=== PATIENT | male | born 1975 ===

== ENCOUNTER 2017-07-05 22:28 | Emergency (ER) | payer SELFPAY ==
[2017-07-05 22:41] VITALS: O2SAT 98
--- NOTE | 2017-07-06 00:23 | C.PDOC ---
History Of Present Illness 41 year old male who presents to the ER with a complaint of a headache. Patient reports he took 400mg of motrin with minimal relief; denies nausea, vomiting, or dizziness. Time Seen by Provider: 07/05/17 23:20 Chief Complaint (Nursing): Headache History Per: Patient History/Exam Limitations: no limitations Onset/Duration Of Symptoms: Hrs Current Symptoms Are (Timing): Still Present Preceeding Symptoms: None Associated Symptoms: denies: Photophobia, Blurred Vision, Nausea, Vomiting, Extremity Weakness Recent travel outside of the [place]: No Past Medical History Reviewed: Historical Data, Nursing Documentation, Vital Signs Vital Signs: Last Vital Signs Temp 98.7 F 07/05/17 22:37 Pulse 94 H 07/05/17 22:37 Resp 18 07/05/17 22:37 BP 125/81 07/05/17 22:37 Pulse Ox 98 07/06/17 00:23 - Medical History PMH: No Chronic Diseases Surgical History: No Surg Hx Family History: States: Unknown Family Hx - Social History Hx Alcohol Use: Yes Hx Substance Use: No - Immunization History Hx Tetanus Toxoid Vaccination: No Hx Influenza Vaccination: No Hx Pneumococcal Vaccination: No Review Of Systems Constitutional: Negative for: Fever, Chills Gastrointestinal: Negative for: Nausea, Vomiting Neurological: Positive for: Headache. Negative for: Weakness, Numbness, Dizziness Physical Exam - Physical Exam Appears: Non-toxic, No Acute Distress Skin: Normal Color, Warm, Dry Head: Atraumatic, Normacephalic Oral Mucosa: Moist, Other (Mild resolving aphthous ulcers) Neck: Normal, Supple Chest: Symmetrical, No Tenderness Cardiovascular: Rhythm Regular, No Murmur Respiratory: Normal Breath Sounds, No Rales, No Rhonchi, No Wheezing Gastrointestinal/Abdominal: Soft, No Tenderness Neurological/Psych: Oriented x3, Normal Speech, Normal Cognition ED Course And Treatment O2 Sat by Pulse Oximetry: 98 (Room air) Pulse Ox Interpretation: Normal Progress Note: tramadol, toradol Reevaluation Time: 00:45 Reassessment Condition: Improved Medical Decision Making Medical Decision Making: typical headache LOW susp of herpes meningitis without any other s/s of meningitis (nuchal rigidity, severe KINSEY, photophobia) Disposition Doctor Will See Patient In The: Office Counseled Patient/Family Regarding: Studies Performed, Diagnosis - Disposition Referrals: [facility] [Outside] [facility] [Outside] Disposition: HOME/ ROUTINE Disposition Time: 00:23 Condition: GOOD Additional Instructions: sigue Ibuprofeno 400-600 mg cada 6 horas sophia necessaro Pepcid 20 mg en la noche para prevenir irritacio'n del estomago debido al ibuprofeno Sigue con la Clin[facility] sophia necessario. Instructions: Acute Headache (ED) Forms: [employer] (Tajik) Print Language: YORUBA - Clinical Impression Clinical Impression: Headache - Scribe Statement The provider has reviewed the documentation as recorded by the Scribe Juancarlos Gasca All medical record entries made by the Scribe were at my direction and personally dictated by me. I have reviewed the chart and agree that the record accurately reflects my personal performance of the history, physical exam, medical decision making, and the department course for this patient. I have also personally directed, reviewed, and agree with the discharge instructions and disposition.
[2017-07-06 00:56] VITALS: BP 122/77; PULSE 87; RESP 16; TEMP 98
== END 2017-07-06 01:10 | disposition home or self-care (01) ==
LOC: C.ER 22:28
DX: R51 Headache (principal)
CPT/HCPCS: 96372; 99284; J1885

== ENCOUNTER 2017-10-03 17:28 | Emergency (ER) | payer OTHER ==
--- NOTE | 2017-10-03 18:19 | C.PDOC ---
History Of Present Illness 41 yr old male presents to [facility] ER with epigastric discomfort which started after eating lunch today. Patient denies history of similar symptoms, fever, chest pain, SOB, nausea, vomiting, diarrhea, constipation, dysuria, incontinence , weakness or numbness. Time Seen by Provider: 10/03/17 18:00 Chief Complaint (Nursing): Abdominal Pain History Per: Patient History/Exam Limitations: no limitations Onset/Duration Of Symptoms: Sudden Onset (STATOR TESTER ) Current Symptoms Are (Timing): Still Present Location Of Pain/Discomfort: Epigastric Past Medical History Reviewed: Historical Data, Nursing Documentation, Vital Signs Vital Signs: Last Vital Signs Temp 98.1 F 10/03/17 17:40 Pulse 86 10/03/17 17:40 Resp 20 10/03/17 17:40 BP 136/78 10/03/17 17:40 Pulse Ox 100 10/03/17 18:59 Family History: States: No Known Family Hx - Social History Hx Alcohol Use: Yes Hx Substance Use: No - Immunization History Hx Tetanus Toxoid Vaccination: No Hx Influenza Vaccination: No Hx Pneumococcal Vaccination: No Review Of Systems Except As Marked, All Systems Reviewed And Found Negative. Constitutional: Negative for: Fever Cardiovascular: Negative for: Chest Pain Respiratory: Negative for: Shortness of Breath Gastrointestinal: Positive for: Abdominal Pain (Epigastric). Negative for: Nausea, Vomiting, Diarrhea, Constipation Genitourinary: Negative for: Dysuria, Incontinence Neurological: Negative for: Weakness, Numbness Physical Exam - Physical Exam Appears: Non-toxic, No Acute Distress Skin: Warm, Dry, No Rash Head: Atraumatic, Normacephalic Respiratory: Normal Breath Sounds, No Rales, No Rhonchi, No Stridor, No Wheezing Gastrointestinal/Abdominal: Soft, Tenderness (Epigastric tenderness), No Guarding, No Rebound Extremity: Normal ROM, No Swelling Neurological/Psych: Oriented x3, Normal Speech, Normal Motor ED Course And Treatment - Laboratory Results Result Diagrams: 10/03/17 18:37 10/03/17 18:37 ECG: Interpreted By Me, Viewed By Me ECG Rhythm: Sinus Rhythm ECG Interpretation: Normal Interpretation Of ECG: Normal axis. Normal intervals. No ST/T wave abnormalities. Rate From EC (BPM) O2 Sat by Pulse Oximetry: 100 (RA) Pulse Ox Interpretation: Normal Medical Decision Making Medical Decision Making: IMPRESSION: Abdominal pain PLAN: * X-Ray - Obstructive Series * EKG * Troponin * CBC * CMP * Protonix IVP * Toradol IVP NOTE: * Patient to be signed out to DR. Servin pending labs, disposition and reevaluation. Disposition - Disposition Disposition Time: 19:00 Condition: STABLE Forms: [facility] (Kiswahili) - Clinical Impression Clinical Impression: Abdominal pain - Scribe Statement The provider has reviewed the documentation as recorded by the Sungibroney Randolph Provider Attestation: All medical record entries made by the Sungibroney were at my direction and personally dictated by me. I have reviewed the chart and agree that the record accurately reflects my personal performance of the history, physical exam, medical decision making, and the department course for this patient. I have also personally directed, reviewed, and agree with the discharge instructions and disposition. Physician Patient Turnover Patient Signed Over To: Holli Servin Handoff Comments: pending labs, reevaluation and disposition
[2017-10-03 18:46] LABS: BASO % 0.4 % (0.0-2.0); EOS % 0.4 % (0.0-4.0); HEMATOCRIT 45.8 % (35.0-51.0); LYMPH # 1.1 K/uL (1.0-4.3); LYMPH % 14.3 % (20.0-40.0); MEAN CELL VOLUME 91.5 fL (80.0-94.0); MEAN CORPUSCULAR HEMOGLOBIN 31.2 pg (27.0-31.0); MEAN CORPUSCULAR HGB CONC 34.1 g/dL (33.0-37.0); MEAN PLATELET VOLUME 8.3 fL (7.2-11.7); MONO # 0.7 K/uL (0.0-0.8); RED CELL DISTRIBUTION WIDTH 13.5 % (11.5-14.5); WHITE BLOOD COUNT 7.5 K/uL (4.8-10.8)
[2017-10-03 18:57] LABS: ALB/GLOB RATIO 1.1 (1.0-2.1); ALKALINE PHOSPHATASE 88 U/L (38-126); ALT/SGPT 111 U/L (21-72); AST/SGOT 150 U/L (17-59); BILIRUBIN,TOTAL 1.1 mg/dL (0.2-1.3); BLOOD UREA NITROGEN 15 mg/dL (9-20); CALCIUM 8.3 mg/dl (8.6-10.4); CARBON DIOXIDE 24 mmol/L (22-30); CHLORIDE 101 mmol/L (98-107); GFR AFRICAN-AMERICAN > 60; GLUCOSE,RANDOM 93 mg/dL (75-110); POTASSIUM 3.5 mmol/L (3.6-5.2); SODIUM 135 mmol/L (132-148)
[2017-10-03] MEDS ORDERED: Iohexol 300 100 ML IJ ONE (19:42)
[2017-10-03 21:10] VITALS: BP 102/60; PULSE 63; RESP 18; TEMP 98.2; O2SAT 99
--- NOTE | 2017-10-04 07:37 | CT ---
PROCEDURE: CT Abdomen and Pelvis with contrast HISTORY: ruq/mid epigastric pain COMPARISON: Abdomen ultrasound examination 11/23/2015 and abdomen obstructive 10/03/2017. TECHNIQUE: Following the intravenous administration of iodinated contrast material, a CT examination of the abdomen and pelvis performed from the domes of the diaphragms to the symphysis pubis with reformatted datasets provided not only axial but also sagittal and coronal planes. Oral contrast was not administered as per referring physician request. Contrast dose: Omnipaque 300, 100 cc. Radiation dose: Total exam DLP = 374.64 mGy-cm. This CT exam was performed using one or more of the following dose reduction techniques: Automated exposure control, adjustment of the mA and/or kV according to patient size, and/or use of iterative reconstruction technique. FINDINGS: LOWER THORAX: Limited bilateral dependent atelectasis appreciated. No pleural or pericardial effusion. A small hiatal hernia is identified. LIVER: Diffuse fatty infiltration of the liver is appreciate without focal mass or intrahepatic biliary duct dilatation identified. GALLBLADDER AND BILE DUCTS: Gallbladder is not fully distended however there is mild mural prominence without pericholecystic fluid collection. Cholelithiasis identified on the sonogram 11/23/[address] and is apparently radiolucent or expelled. PANCREAS: Unremarkable. No gross lesion or ductal dilatation. SPLEEN: Unremarkable. ADRENALS: Unremarkable. No mass. KIDNEYS AND URETERS: The right kidney appears diffusely unremarkable however there is moderate left hydronephrosis without perinephric reaction. The proximal left ureter is quite small did this may be a function of ureteropelvic junction stricture or lucent calculus but no radiodense calculus seen throughout the left kidney or ureter or thin the urinary bladder. VASCULATURE: Unremarkable. No aortic aneurysm. BOWEL: The stomach is collapsed and there is no bowel obstruction appreciated. Prominent fecal loading is seen throughout the proximal half of the colon with a lesser amount in the the distal half. Evaluation of the sigmoid colon is limited due to lack of oral contrast and the collapsed appearance of this segment of colon. Lack of oral contrast as well as collapse of the sigmoid colon limits its evaluation. APPENDIX: Normal appendix. PERITONEUM: Unremarkable. No free fluid. No free air. LYMPH NODES: Unremarkable. No enlarged lymph nodes. BLADDER: Unremarkable. REPRODUCTIVE: Unremarkable. BONES: No acute fracture. OTHER FINDINGS: None. IMPRESSION: 1. Moderate left hydronephrosis without perinephric reaction or fluid collection. Further, there is no radiodense calculus identified in the left ureter or within the urinary bladder. Hydronephrosis is recurrent or increased compared the prior ultrasound 11/23/2015. Consider possible UPJ obstruction or lucent calculus obstructing the proximal left ureter. 2. Hepatic steatosis. Concordant preliminary report from [facility], 10/03/2017.
--- NOTE | 2017-10-04 08:07 | RAD ---
PROCEDURE: Radiographs of the chest and abdomen (obstructive series) HISTORY: abd pain COMPARISON: No prior. TECHNIQUE: AP radiograph of the chest, with upright and supine radiographs of the abdomen. FINDINGS: CHEST: Lungs: Clear. Cardiovascular: Normal size heart. No pulmonary vascular congestion. Pleura: No pleural fluid. No pneumothorax. Other findings: None. ABDOMEN AND PELVIS: Bowel: Unremarkable bowel gas pattern. No evidence of mechanical obstruction. Free air: None. Bones: Unremarkable. Other findings: None. IMPRESSION: Unremarkable radiographs of chest and abdomen. No evidence of mechanical bowel obstruction.
--- NOTE | 2017-10-04 10:10 | CARD ---
APPROVED REPORT EKG Measurement Heart [id number] <Conclusion> Normal sinus rhythm Normal ECG
== END 2017-10-03 21:51 | disposition home or self-care (01) ==
LOC: C.ER 17:28
DX: R10.13 Epigastric pain (principal)
CPT/HCPCS: 74022; 74177; 80053; 83690; 84484; 85025; 93005; 96374; 96375; 99285; C9113; J1885; Q9967

== ENCOUNTER 2018-02-28 22:17 | Emergency (ER) | payer OTHER, SELFPAY ==
[2018-02-28] MEDS ORDERED: Sodium Chloride 0.9% 1,000 ML IV ONE (23:36)
--- NOTE | 2018-02-28 23:36 | C.PDOC ---
History Of Present Illness Patient presents with 5-7 days of rlq abdominal and inguinal discomfort. Denies any trauma or heavy lifting. occasionally some dysuria. No f/c/n/v. tolerating po Time Seen by Provider: 02/28/18 23:29 Chief Complaint (Nursing): Abdominal Pain History Per: Patient History/Exam Limitations: no limitations Onset/Duration Of Symptoms: Days (7) Current Symptoms Are (Timing): Still Present Context: Other Severity: Mild Pain Scale Rating Of: 3 Location Of Pain/Discomfort: RLQ Radiation Of Pain To:: None Quality Of Discomfort: Dull, Aching Associated Symptoms: denies: Fever, Chills, Nausea, Vomiting Exacerbating Factors: Movement Alleviating Factors: None Last Bowel Movement: Today Recent travel outside of the [place]: No Additional History Per: Patient Past Medical History Reviewed: Historical Data, Nursing Documentation, Vital Signs Vital Signs: Last Vital Signs Temp 98.6 F 02/28/18 22:25 Pulse 80 02/28/18 22:25 Resp 14 02/28/18 22:25 BP 120/72 02/28/18 22:25 Pulse Ox 96 02/28/18 23:53 Family History: States: No Known Family Hx - Social History Hx Alcohol Use: Yes Hx Substance Use: No - Immunization History Hx Tetanus Toxoid Vaccination: No Hx Influenza Vaccination: No Hx Pneumococcal Vaccination: No Review Of Systems Constitutional: Negative for: Fever, Chills Cardiovascular: Negative for: Chest Pain Respiratory: Negative for: Shortness of Breath Gastrointestinal: Positive for: Abdominal Pain. Negative for: Nausea, Vomiting Genitourinary: Negative for: Dysuria, Scrotal Pain, Penile Pain Musculoskeletal: Negative for: Back Pain Skin: Negative for: Rash Neurological: Negative for: Weakness Psych: Negative for: Anxiety Physical Exam - Physical Exam Appears: Non-toxic, No Acute Distress Skin: Warm, Dry Head: Normacephalic Eye(s): bilateral: Normal Inspection Oral Mucosa: Moist Neck: Supple Chest: Symmetrical Cardiovascular: Rhythm Regular Respiratory: No Rales, No Rhonchi, No Wheezing Gastrointestinal/Abdominal: Soft, Tenderness (rlq, ), No Distention, No Guarding , No Rebound, No Hernia Male Genital: No Testicular Tenderness, No Testicular Swelling, Inguinal Tenderness (mild right), No Inguinal Swelling, No Circumcised Extremity: Normal ROM Extremity: Bilateral: Atraumatic Neurological/Psych: Oriented x3, Normal Speech, Normal Cognition Gait: Steady ED Course And Treatment - Laboratory Results Result Diagrams: 02/28/18 23:51 02/28/18 23:51 O2 Sat by Pulse Oximetry: 96 Pulse Ox Interpretation: Normal Reevaluation Time: 02:08 Reassessment Condition: Improved Disposition Counseled Patient/Family Regarding: Studies Performed, Diagnosis, Need For Followup, Rx Given - Disposition Referrals: [facility] [Outside] [facility] [Outside] Disposition: HOME/ ROUTINE Disposition Time: 23:36 Condition: FAIR Additional Instructions: Please return if symptoms recur Prescriptions: Naproxen [Naprosyn] 1 tab PO BID PRN #25 tab PRN Reason: Pain Forms: [facility] (Yi), General Discharge Instructions - Clinical Impression Clinical Impression: Inguinal strain
[2018-02-28 23:58] LABS: BASO % 0.6 % (0.0-2.0); EOS # 0.1 K/uL (0.0-0.7); EOS % 1.8 % (0.0-4.0); HEMOGLOBIN 15.7 g/dL (12.0-18.0); LYMPH # 1.5 K/uL (1.0-4.3); LYMPH % 24.3 % (20.0-40.0); MEAN CELL VOLUME 91.6 fL (80.0-94.0); MEAN CORPUSCULAR HEMOGLOBIN 32.4 pg (27.0-31.0); MEAN CORPUSCULAR HGB CONC 35.4 g/dL (33.0-37.0); MEAN PLATELET VOLUME 9.3 fL (7.2-11.7); MONO # 0.7 K/uL (0.0-0.8); MONO % 10.7 % (0.0-10.0); NEUT # 3.9 K/uL (1.8-7.0); NEUT % 62.6 % (50.0-75.0); NRBC % 0.1 % (0.0-2.0); RBC 4.85 Mil/uL (4.40-5.90); RED CELL DISTRIBUTION WIDTH 13.5 % (11.5-14.5); WHITE BLOOD COUNT 6.2 K/uL (4.8-10.8)
[2018-03-01] MEDS ORDERED: Sodium Chloride 0.9% 1,000 ML ONE
[2018-03-01 00:03] LABS: INR 0.9; PROTHROMBIN TIME 10.4 SECONDS (9.7-12.2)
[2018-03-01 00:13] LABS: ALB/GLOB RATIO 1.3 (1.0-2.1); ALBUMIN 4.2 g/dL (3.5-5.0); ALT/SGPT 37 U/L (21-72); AST/SGOT 41 U/L (17-59); BLOOD UREA NITROGEN 17 mg/dL (9-20); CALCIUM 9.2 mg/dl (8.6-10.4); GFR AFRICAN-AMERICAN > 60; GFR NON-AFRICAN AMERICAN > 60; LIPASE 71 U/L (23-300)
[2018-03-01] MEDS ORDERED: Iodixanol 320 MG/ML 100 ML BOTTLE IV ONE (00:24)
--- NOTE | 2018-03-01 01:47 | CT ---
EXAM: CT Abdomen and Pelvis With Intravenous Contrast CLINICAL HISTORY: 42 years old, male; Pain; Abdominal pain; Patient HX: 10-03-17 images sent; Additional info: Rlq pain, inguinal pain TECHNIQUE: Axial computed tomography images of the abdomen and pelvis with intravenous contrast. All CT scans at this facility use one or more dose reduction techniques, viz.: automated exposure control; ma/kV adjustment per patient size (including targeted exams where dose is matched to indication; i.e. head); or iterative reconstruction technique. Coronal and sagittal reformatted images were created and reviewed. CONTRAST: 100 mL of [id number] administered intravenously. COMPARISON: CT - ABD PELVIS IV CONTRAST ONLY 2017-10-03 19:51 FINDINGS: Lung bases: There is minimal bibasilar atelectasis. ABDOMEN: Liver: Unremarkable. No mass. Gallbladder and bile ducts: Unremarkable. No calcified stones. No ductal dilation. Pancreas: Unremarkable. No mass. No ductal dilation. Spleen: Unremarkable. No splenomegaly. Adrenals: Unremarkable. No mass. Kidneys and ureters: The left kidney is enlarged. Diffuse cortical thinning with moderate left hydronephrosis and dilatation of the renal pelvis suggesting chronic ureteropelvic obstruction. The right kidney is normal. Stomach and bowel: Unremarkable. No obstruction. No mucosal thickening. Appendix: No findings to suggest acute appendicitis. Normal appendix. PELVIS: Bladder: Unremarkable. No mass. Reproductive: Unremarkable as visualized. ABDOMEN and PELVIS: Intraperitoneal space: Unremarkable. No free air. No significant fluid collection. Bones/joints: No acute fracture. No dislocation. Soft tissues: Unremarkable. Vasculature: Unremarkable. No abdominal aortic aneurysm. Lymph nodes: Unremarkable. No enlarged lymph nodes. 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
[2018-03-01 02:23] LABS: URINE BILIRUBIN NEGATIVE (NEGATIVE); URINE BLOOD NEGATIVE (NEGATIVE); URINE CLARITY Clear (Clear); URINE COLOR Straw (YELLOW); URINE GLUCOSE (UA) NORMAL (Normal); URINE LEUKOCYTE ESTERASE NEG Leu/uL (Negative); URINE PROTEIN NEGATIVE (NEGATIVE); URINE UROBILINOGEN NORMAL mg/dL (0.2-1.0)
[2018-03-01 02:41] VITALS: BP 123/81; PULSE 60; RESP 18; TEMP 97.9; O2SAT 98
== END 2018-03-01 02:42 | disposition home or self-care (01) ==
LOC: C.ER 22:17
DX: S39.011A Strain of muscle, fascia and tendon of abdomen, initial encounter (principal); X58.XXXA Exposure to other specified factors, initial encounter
CPT/HCPCS: 74177; 80053; 81001; 83690; 85025; 85610; 85730; 96361; 96374; 96375; 99285; J1885; J7040; Q9967

== ENCOUNTER 2018-10-19 19:33 | Emergency (ER) | payer OTHER ==
[2018-10-19 20:25] VITALS: PULSE 68; O2SAT 99
[2018-10-19] MEDS ORDERED: Sodium Chloride 0.9% 1,000 ML IV ONE (20:42)
--- NOTE | 2018-10-19 20:42 | C.PDOC ---
History Of Present Illness 43 year old male presents to the ED complaining of right lower quadrant and right testicular pain ongoing for a couple of hours. Describes pain as 5/10 discomfort. Denies any difficulty voiding, fever, chills, dysuria, hematuria, nausea, vomiting, diarrhea, or constipation. Time Seen by Provider: 10/19/18 20:36 Chief Complaint (Nursing): Male Genitourinary History Per: Patient History/Exam Limitations: no limitations Onset/Duration Of Symptoms: Hrs Current Symptoms Are (Timing): Still Present Severity: Moderate Pain Scale Rating Of: 5 Past Medical History Reviewed: Historical Data, Nursing Documentation, Vital Signs Vital Signs: Last Vital Signs Temp 98.7 F 10/19/18 19:57 Pulse 68 10/19/18 19:57 Resp 18 10/19/18 19:57 BP 137/90 10/19/18 19:57 Pulse Ox 99 10/19/18 19:57 - Medical History PMH: No Chronic Diseases Surgical History: No Surg Hx Family History: States: No Known Family Hx - Social History Hx Alcohol Use: Yes Hx Substance Use: No - Immunization History Hx Tetanus Toxoid Vaccination: No Hx Influenza Vaccination: No Hx Pneumococcal Vaccination: No Review Of Systems Constitutional: Negative for: Fever, Chills Gastrointestinal: Positive for: Abdominal Pain (right lower quadrant pain). Negative for: Nausea, Vomiting, Diarrhea, Constipation Genitourinary: Positive for: Other (right testicular pain ). Negative for: Dysuria, Hematuria Physical Exam - Physical Exam Appears: Non-toxic, No Acute Distress Skin: Warm, Dry, No Rash Head: Normacephalic Eye(s): bilateral: Normal Inspection Oral Mucosa: Moist Neck: Supple Chest: Symmetrical Cardiovascular: Rhythm Regular Respiratory: No Rales, No Rhonchi, No Wheezing Gastrointestinal/Abdominal: Soft, Hernia (right inguinal hernia ) Male Genital: Testicular Tenderness (slight right testicular tenderness) Extremity: Bilateral: Atraumatic, Normal Color And Temperature, Normal ROM Neurological/Psych: Oriented x3, Normal Speech Gait: Steady ED Course And Treatment - Laboratory Results Result Diagrams: 10/19/18 20:50 10/19/18 20:50 O2 Sat by Pulse Oximetry: 99 (RA) Pulse Ox Interpretation: Normal Progress Note: CT abd/pel ordered. Patient given Toradol and IV fluids. Blood and urine collected and sent to the lab for analysis. Upon reducing hernia, patient reports feeling better. Reevaluation Time: 23:11 Reassessment Condition: Improved Disposition Counseled Patient/Family Regarding: Studies Performed, Diagnosis, Need For Followup - Disposition Referrals: [facility] [Outside] [facility] [Outside] Anish Murray MD [Staff Provider] - Jefry Guajardo MD [Staff Provider] - Disposition: HOME/ ROUTINE Disposition Time: 20:42 Condition: FAIR Additional Instructions: Please return if symptoms recur Instructions: Groin Hernia (DC), Hydrocele/Varicocele (DC) Forms: [employer] (Mongolian) Print Language: NICARAGUAN - Clinical Impression Clinical Impression: Reducible right inguinal hernia, Hydrocele in adult - Scribe Statement The provider has reviewed the documentation as recorded by the Sungibroney Clarke All medical record entries made by the Sungibroney were at my direction and personally dictated by me. I have reviewed the chart and agree that the record accurately reflects my personal performance of the history, physical exam, medic al decision making, and the department course for this patient. I have also personally directed, reviewed, and agree with the discharge instructions and disposition.
[2018-10-19] MEDS ORDERED: Sodium Chloride 0.9% 1,000 ML ONE (20:53)
[2018-10-19 20:54] LABS: HEMOGLOBIN 15.8 g/dL (12.0-18.0); LYMPH # 1.5 K/uL (1.0-4.3); MONO # 0.7 K/uL (0.0-0.8)
[2018-10-19 20:56] LABS: BASO % 0.4 % (0.0-2.0); EOS % 0.2 % (0.0-4.0); LYMPH % 14.4 % (20.0-40.0); MEAN CELL VOLUME 91.4 fL (80.0-94.0); MEAN CORPUSCULAR HGB CONC 35.1 g/dL (33.0-37.0); MEAN PLATELET VOLUME 8.8 fL (7.2-11.7); MONO % 7.2 % (0.0-10.0); NEUT # 7.9 K/uL (1.8-7.0); NEUT % 77.8 % (50.0-75.0); RBC 4.94 Mil/uL (4.40-5.90); RED CELL DISTRIBUTION WIDTH 13.5 % (11.5-14.5); WHITE BLOOD COUNT 10.2 K/uL (4.8-10.8)
[2018-10-19 21:03] LABS: PROTHROMBIN TIME 10.9 SECONDS (9.7-12.2)
[2018-10-19 21:07] LABS: URINE BILIRUBIN NEGATIVE (NEGATIVE); URINE BLOOD NEGATIVE (NEGATIVE); URINE CLARITY Clear (Clear); URINE COLOR Yellow (YELLOW); URINE GLUCOSE (UA) NORMAL (Normal); URINE LEUKOCYTE ESTERASE NEG Leu/uL (Negative); URINE PROTEIN 1+ mg/dL (NEGATIVE); URINE UROBILINOGEN NORMAL mg/dL (0.2-1.0)
[2018-10-19 21:07] LABS: ALB/GLOB RATIO 1.6 (1.0-2.1); ALBUMIN 4.6 g/dL (3.5-5.0); ALT/SGPT 31 U/L (21-72); AST/SGOT 24 U/L (17-59); BLOOD UREA NITROGEN 15 mg/dL (9-20); CALCIUM 8.7 mg/dl (8.6-10.4); GFR NON-AFRICAN AMERICAN > 60; LIPASE 33 U/L (23-300)
[2018-10-19] MEDS ORDERED: Iohexol 240 (50 ml) PO ONE (21:08)
[2018-10-19] MEDS ORDERED: Iohexol 240 (50 ml) ONE (21:12)
[2018-10-19 23:24] VITALS: BP 110/68; RESP 16; TEMP 98.2
--- NOTE | 2018-10-20 09:45 | CT ---
Date of service: 10/19/2018 PROCEDURE: CT Abdomen and Pelvis . HISTORY: Abdominal pain COMPARISON: Comparison made with prior CT scan abdomen and pelvis dated 03/01/2018. The TECHNIQUE: Contiguous axial images of the abdomen and performed following oral and intravenous injection of approximately 100 cc Visipaque three hundred twenty contrast material.. Coronal and Sagittal reformats generated. Radiation dose: Total exam DLP = 425.91 mGy-cm. This CT exam was performed using one or more of the following dose reduction techniques: Automated exposure control, adjustment of the mA and/or kV according to patient size, and/or use of iterative reconstruction technique. FINDINGS: LOWER THORAX: Mild passive dependent atelectasis both posterior lower lung solomon. No focal consolidation. No effusion or basilar pneumothorax. Small hiatal hernia. LIVER: Unrem liver exhibits normal size measuring approximately 14 cm in CC dimension. Mild fatty hepatic infiltration. No obvious hepatic mass collection or calcification. Portal and splenic veins are opacified.. GALLBLADDER AND BILE DUCTS: Unre gallbladder is partially distended which may account for slight thick-walled appearance. No obvious intraluminal gallbladder calculi. Clinic correlation recommended to exclude the possibility of mild inflammation. PANCREAS: Unremarkable. No mass. No ductal dilatation. SPLEEN: Unremar spleen exhibits normal size and attenuation pattern without mass collection or calcification. ADRENALS: No adrenal lesions.. KIDNEYS AND URETERS: Kidneys exhibit relatively symmetric nephrograms. There is marked dilatation of the left renal collecting system, left sided extrarenal pelvis and proximal ureter which rapidly tapers likely representing UPJ. Note however that the distal ureter from approximately the level of the superior iliac bone then mildly dilates again for short distance distally to the level of the UVJ. No obstructing calculi within the ureter seen.. Clinical correlation recommended.. There appears to be mild columnization of the right ureter also without distal ureteral calculi seen. BLADDER: Urinary bladder is markedly distended; rule out bladder outlet obstruction.. REPRODUCTIVE: Prostate gland measures approximately 3.7 cm and exhibits slight heterogeneous attenuation. Findings likely due to mild BPH however correlation with PSA recommended.. APPENDIX: Normal appendix.. BOWEL: Evaluation of the bowel is somewhat limited due to a incomplete opacification. The stomach is distended with liquid contrast material and air. Visualized loops of small bowel exhibit normal contour and caliber. No evidence of acute mechanical small bowel obstruction. Moderate amount of stool seen within the ascending and transverse colon consistent with mild fecal retention/constipation. The descending and sigmoid colon is relatively collapsed. No definitive evidence of mural wall thickening.. There are a few scattered colonic diverticula however no radiographic evidence of acute diverticulitis. PERITONEUM: No fluid collection. No free air. Small fat containing inguinal hernia. There is a small right inguinal hernia which that contains what appears represent a small amount of fluid and mesenteric fat. LYMPH NODES: Unremarkable. No enlarged lymph nodes. VASCULATURE: Unremarkable. No aortic aneurysm. No aortic atherosclerotic calcification or mural plaque present. BONES: Mild multilevel degenerative spondylosis of the lower thoracic and lumbar spine. OTHER FINDINGS: None. IMPRESSION: Persistent dilatation of the left renal collecting system left extrarenal pelvis and proximal ureter which rapidly tapers likely representing UPJ however note that the distal left ureter from the level of approximately the superior iliac bone also slightly dilates however no evidence of ureteral calculi. There is also mild columnization of the right ureter also without obstructing stone. Urinary bladder is markedly distended. Few scattered colonic diverticula without radiographic evidence of acute diverticulitis. Mild fatty hepatic infiltration. Gallbladder is incompletely distended which may in part account for slight thick-walled appearance however correlation with clinical exam and laboratory values recommended to exclude the possibility of mild inflammation. Findings also suggest mild constipation.
--- NOTE | 2018-10-20 10:29 | US ---
Date of service: 10/19/2018 HISTORY: Right testicular pain TECHNIQUE: Realtime sonography through the scrotum with color and doppler flow. COMPARISON: None Available. FINDINGS: RIGHT TESTICLE: Measures 4.7 x 2.7 x 3.5 cm. Normal echotexture and flow. There are scattered microcalcifications. RIGHT EPIDIDYMIS: Epididymal head measures 1.0 x 1.7 cm. There is a 0.3 x 0.3 x 0.4 cm cyst in the head of the epididymis. Grossly unremarkable appearance with normal flow. LEFT TESTICLE: Measures 5.0 x 2.4 x 3.1 cm. Normal echotexture and flow. There are scattered microcalcifications. LEFT EPIDIDYMIS: Epididymal head measures 1.2 x 0.6 x 1.4 cm. Grossly unremarkable appearance with normal flow. HYDROCELE: There are bilateral complex hydroceles, right larger than left. VARICOCELE: None. OTHER FINDINGS: None. IMPRESSION: No evidence for testicular mass or torsion. Small bilateral hydroceles. Scattered microcalcifications in each testicle, clinical follow-up is recommended and if clinically indicated imaging and clinical surveillance may be performed. A preliminary report was provided by [employer].
== END 2018-10-19 23:55 | disposition home or self-care (01) ==
LOC: C.ER 19:33
DX: K40.90 Unilateral inguinal hernia, without obstruction or gangrene, not specified as recurrent (principal); N43.3 Hydrocele, unspecified
CPT/HCPCS: 74177; 76870; 80053; 81001; 83690; 85025; 85610; 85730; 96361; 96374; 99284; J1885; J7030